=== PATIENT | male | born 1975 | race Two or more races ===

== ENCOUNTER 2020-11-26 15:55 | Outpatient (CLI) | payer MEDICARE ==
[2020-11-26 17:07] LABS: MEAN CORPUSCULAR HEMOGLOBIN 31.3 pg (27.5-34.5); MEAN CORPUSCULAR HGB CONC 34.1 g/dL (33.2-36.2); MEAN PLATELET VOLUME 9.4 fL (7.4-10.4); PLATELET COUNT 243 x10^3/uL (130-400); RED BLOOD COUNT 4.77 x10^6/uL (4.38-5.82); RED CELL DISTRIBUTION WIDTH 14.5 % (9.4-14.8)
== END 2020-11-26 23:59 | disposition home or self-care (01) ==
LOC: RAD 15:55
PROVIDERS: ATTEND Internal Medicine
DX: I82.412 Acute embolism and thrombosis of left femoral vein (principal); R09.02 Hypoxemia
CPT/HCPCS: 36415; 71046; 85027; 85379; 93970

== ENCOUNTER 2020-12-31 09:35 | Observation (INO) | payer MEDICARE ==
[2020-12-31] VITALS (7 sets, daily range): BP systolic 106–148; BP diastolic 73–98
[~2020-12-31] VITALS: Ht 190.5 cm; Wt 94.0 kg
[2020-12-31] MEDS ORDERED: ZOLP-413 PO (10:09)
[2020-12-31] MEDS ORDERED: METO25TA4 PO (10:09)
[2020-12-31] MEDS ORDERED: METO10TA82 PO (10:09)
[2020-12-31] MEDS ORDERED: ASPI-963 PO (10:09)
[2020-12-31] MEDS ORDERED: GABA600T7 PO (10:09)
[2020-12-31] MEDS ORDERED: BUPR-173 PO (10:09)
[2020-12-31] MEDS ORDERED: METH10SO PO (10:09)
[2020-12-31] MEDS ORDERED: ROPI3TAB PO (10:09)
[2020-12-31] MEDS ORDERED: ATOR20TA37 PO (10:09)
[2020-12-31] MEDS ORDERED: ALPR0.254 PO (10:09)
[2020-12-31] MEDS ORDERED: KETOROLAC 30 MG/1 ML ONE ×2 (10:15→12:52)
[2020-12-31 10:25] LABS: BASOPHILS % (AUTO) 0 % (0-1); EOSINOPHILS % (AUTO) 3 % (1-7); LYMPHOCYTES % (AUTO) 6 % (22-44); MEAN CORPUSCULAR HEMOGLOBIN 30.4 pg (27.5-34.5); MEAN CORPUSCULAR HGB CONC 33.3 g/dL (33.2-36.2); MEAN PLATELET VOLUME 9.8 fL (7.4-10.4); MONOCYTES % (AUTO) 4 % (2-9); NEUTROPHILS % (AUTO) 87 % (42-75); PLATELET COUNT 258 x10^3/uL (130-400); RED CELL DISTRIBUTION WIDTH 14.2 % (9.4-14.8)
--- NOTE | 2020-12-31 10:29 | NUR ---
Pt presents to the ER via EMS from home. Sudden onset CP that feels the same as previous UT. Pt has stent from previous UT that was discovered to be occluded in September. Pt was diagonsed with bronchitis in September and tested negative for COVID at this time. Both mother and father have cardiac hx. Pt presents to the ER diaphoretic and without relief from pain. EKG done upon arrival. Pt connected to all monitors. Call light in reach. MD Vallejo to bedside for eval.
[2020-12-31] MEDS ORDERED: KETOROLAC 30 MG/1 ML IVPush ONE (10:30)
[2020-12-31] MEDS ORDERED: SODIUM CHLORIDE FLUSH 10ML SYR IVF ONE (10:30)
[2020-12-31 10:37] LABS: ALANINE AMINOTRANSFERASE 23 U/L (12-78); ALBUMIN 3.7 g/dL (3.4-5.0); ANION GAP 4 mmol/L (5-15); CALCIUM 9.2 mg/dL (8.5-10.1); CHLORIDE 106 mmol/L (98-107); CREATININE 1.06 mg/dL (0.7-1.3)
[2020-12-31 10:41] LABS: ALKALINE PHOSPHATASE 107 U/L (45-117); BILIRUBIN,TOTAL 0.8 mg/dL (0.2-1.0); TOTAL PROTEIN 7.6 g/dL (6.4-8.2); TROPONIN I < 0.015 ng/mL (0.000-0.045)
--- NOTE | 2020-12-31 10:49 | NUR ---
Pt no longer diaphoretic.
--- NOTE | 2020-12-31 11:36 | NUR ---
Pt a telemetry hold at 1130. Pt sleeping. VSS. Awaiting admitting hospitalist orders.
[2020-12-31] MEDS ORDERED: ONDANSETRON 2MG/ML, 2ML ONE (11:55)
[2020-12-31] MEDS ORDERED: ENOXAPARIN 40 MG/0.4 ML ONE (11:55)
[2020-12-31] MEDS: ASPIRIN 81 MG TABLET EC PO SCH (11:58)
[2020-12-31] MEDS: SODIUM CHLORIDE 0.9% 1,000 ML IV SCH (11:58)
[2020-12-31] MEDS: ENOXAPARIN 40 MG/0.4 ML SQ SCH (11:59)
[2020-12-31] MEDS ORDERED: ACETAMINOPHEN 325 MG TABLET PO PRN (12:00)
[2020-12-31] MEDS ORDERED: ZOLPIDEM 5MG TABLET PO PRN (12:00)
[2020-12-31] MEDS: ONDANSETRON 2MG/ML, 2ML IVPush PRN ×2 (12:03→20:37)
--- NOTE | 2020-12-31 12:06 | NUR ---
ASSIST RN: PT C/O NAUSEA, MEDICATED WITH ZOFRAN PER PRN ORDERS. MIVF INFUSING. TO CT VIA GIANNI JOLLY.
[2020-12-31] MEDS ORDERED: OMNIPAQUE 350 MG/ML, 75ML BOTTLE ONE (12:29)
[2020-12-31 12:33] LABS: TROPONIN I < 0.015 ng/mL (0.000-0.045)
--- NOTE | 2020-12-31 12:33 | NUR ---
, earnest Banda to update. .
[2020-12-31] MEDS: KETOROLAC 30 MG/1 ML IV PRN (13:04)
--- NOTE | 2020-12-31 13:31 | NUR ---
First attempt to call report.
[2020-12-31] MEDS ORDERED: NITROGLYCERIN 0.4 MG/SPRAY SL PRN (14:30)
[2020-12-31] MEDS: NITROGLYCERIN 0.4 MG BOTTLE (25 TABS) SL PRN ×3 (14:41→14:54)
[2020-12-31] MEDS: MORPHINE SULFATE 4 MG/ML, 1ML IVPush PRN ×2 (15:26→20:38)
[2020-12-31] MEDS: CEFTRIAXONE 2 GM in DEXTROSE 5% 50 ML IVPB SCH (15:29)
[2020-12-31] MEDS: METHADONE 10 MG TABLET PO SCH ×2 (17:11→21:19)
[2020-12-31] MEDS: METOCLOPRAMIDE 5 MG/ML, 2ML IVPush PRN (17:11)
[2020-12-31] MEDS: DOXYCYCLINE 100 MG in DEXTROSE 5% 250 ML IV SCH (17:11)
[2020-12-31 17:46] LABS: TROPONIN I < 0.015 ng/mL (0.000-0.045)
[2020-12-31] MEDS: METOPROLOL TARTRATE 25 MG TAB PO SCH (18:29)
[2020-12-31 19:28] LABS: TROPONIN I < 0.015 ng/mL (0.000-0.045)
[2020-12-31] MEDS ORDERED: GABAPENTIN 300 MG CAPSULE PO SCH (21:00)
[2020-12-31] MEDS ORDERED: ATORVASTATIN 40 MG TABLET PO SCH (21:00)
[2020-12-31] MEDS: BUPROPION SR 100 MG TABLET PO SCH (21:19)
[2020-12-31 22:44] LABS: AMPHETAMINE SCREEN, URINE Negative (Negative); BARBITURATE SCREEN, URINE Negative (Negative); BENZODIAZEPINE SCREEN, URINE Positive (Negative); CANNABINOID SCREEN, URINE Positive (Negative); COCAINE SCREEN, URINE Negative (Negative); METHADONE SCREEN, URINE Positive (Negative); OPIATE SCREEN, URINE Positive (Negative)
[2021-01-01 00:17] VITALS: BP 112/76
[2021-01-01] MEDS: METOCLOPRAMIDE 5 MG/ML, 2ML IVPush PRN ×3 (00:59→14:36)
[2021-01-01] MEDS: MORPHINE SULFATE 4 MG/ML, 1ML IVPush PRN ×2 (00:59→05:09)
[2021-01-01 05:00] VITALS: BP 106/73
[2021-01-01] MEDS: ONDANSETRON 2MG/ML, 2ML IVPush PRN (05:09)
[2021-01-01] MEDS: DOXYCYCLINE 100 MG in DEXTROSE 5% 250 ML IV SCH ×2 (05:09→16:34)
[2021-01-01] MEDS: METOPROLOL TARTRATE 25 MG TAB PO SCH ×2 (05:10→08:34)
[2021-01-01] MEDS: METHADONE 10 MG TABLET PO SCH ×3 (05:10→16:34)
[2021-01-01 06:03] LABS: BASOPHILS % (AUTO) 1 % (0-1); EOSINOPHILS % (AUTO) 5 % (1-7); LYMPHOCYTES % (AUTO) 19 % (22-44); MEAN CORPUSCULAR HEMOGLOBIN 30.9 pg (27.5-34.5); MEAN CORPUSCULAR HGB CONC 33.6 g/dL (33.2-36.2); MEAN PLATELET VOLUME 9.7 fL (7.4-10.4); MONOCYTES % (AUTO) 8 % (2-9); NEUTROPHILS % (AUTO) 68 % (42-75); PLATELET COUNT 212 x10^3/uL (130-400); RED BLOOD COUNT 4.79 x10^6/uL (4.38-5.82); RED CELL DISTRIBUTION WIDTH 13.9 % (9.4-14.8)
[2021-01-01 06:09] LABS: ALBUMIN 3.1 g/dL (3.4-5.0); ANION GAP 3 mmol/L (5-15); CALCIUM 8.4 mg/dL (8.5-10.1); CHLORIDE 110 mmol/L (98-107)
[2021-01-01 06:15] LABS: ALANINE AMINOTRANSFERASE 34 U/L (12-78); ALKALINE PHOSPHATASE 122 U/L (45-117); BILIRUBIN,TOTAL 0.8 mg/dL (0.2-1.0); CHOL/HDL RATIO 5.6; CHOLESTEROL, TOTAL 150 mg/dL (140-239); CREATININE 0.92 mg/dL (0.7-1.3); HDL CHOL % 18 % (26-37); HDL CHOLESTEROL (DIRECT) 27 mg/dL (40-60); LDL CHOLESTEROL,CALCULATED 96 mg/dL (54-169); LDL/HDL RATIO 3.6 (0.5-3.0); TOTAL PROTEIN 6.2 g/dL (6.4-8.2); TRIGLYCERIDES 136 mg/dL (50-200); VLDL CHOLESTEROL 27 mg/dL (0-25)
[2021-01-01 08:27] VITALS: BP 131/87
[2021-01-01] MEDS: ASPIRIN 81 MG TABLET EC PO SCH (08:32)
[2021-01-01] MEDS: BUPROPION SR 100 MG TABLET PO SCH (08:33)
[2021-01-01] MEDS: KETOROLAC 30 MG/1 ML IV PRN ×2 (08:51→15:12)
[2021-01-01] MEDS ORDERED: ROPINIROLE 1MG TABLET PO SCH (09:00)
[2021-01-01] MEDS ORDERED: GABAPENTIN 300 MG CAPSULE PO SCH (09:00)
[2021-01-01] MEDS: SODIUM CHLORIDE 0.9% 1,000 ML IV SCH ×2 (09:12)
[2021-01-01 11:15] VITALS: BP 130/81
[2021-01-01] MEDS: ENOXAPARIN 40 MG/0.4 ML SQ SCH (11:46)
[2021-01-01 14:03] VITALS: BP 154/108
[2021-01-01] MEDS ORDERED: CEFD300C37 PO (15:34)
[2021-01-01] MEDS ORDERED: DOXY100T PO (15:34)
[2021-01-01] MEDS: CEFTRIAXONE 2 GM in DEXTROSE 5% 50 ML IVPB SCH (15:52)
[2021-01-01] MEDS ORDERED: ATORVASTATIN 80 MG TABLET PO SCH (21:00)
[2021-01-01] MEDS ORDERED: METOPROLOL SUCCINATE 25 MG TAB.ER.24H PO SCH (21:00)
== END 2021-01-01 18:47 | disposition home or self-care (01) ==
LOC: ED 11:09 → INTOOBSV 11:18 → EDIP 11:18 → 5SO 14:02 → UNDODISIN 01-01 18:47
PROVIDERS: ADMIT Hospitalist; ATTEND Hospitalist
DX: R07.89 Other chest pain (principal); R61 Generalized hyperhidrosis; J96.10 Chronic respiratory failure, unspecified whether with hypoxia or hypercapnia; I25.10 Atherosclerotic heart disease of native coronary artery without angina pectoris; G89.29 Other chronic pain; E66.9 Obesity, unspecified; R73.9 Hyperglycemia, unspecified; I25.2 Old myocardial infarction; F41.9 Anxiety disorder, unspecified; I10 Essential (primary) hypertension; E78.5 Hyperlipidemia, unspecified; I71.4 Abdominal aortic aneurysm, without rupture; I82.502 Chronic embolism and thrombosis of unspecified deep veins of left lower extremity; Z95.810 Presence of automatic (implantable) cardiac defibrillator; Z79.82 Long term (current) use of aspirin; Z79.899 Other long term (current) drug therapy
CPT/HCPCS: 36415; 71045; 71275; 80053; 80061; 80307; 82962; 83880; 84145; 84443; 84484; 85025; 85379; 87040; 93005; 93971; 96361; 96365; 96366; 96367; 96372; 96375; 96376; 99285; C8929; G0378; J0696; J1650; J1885; J2270; J2405; J2765; J7030; J7060; Q9957; Q9967; 96374

== ENCOUNTER → 2021-01-24 | Outpatient (CLI) | payer MEDICARE ==
[~2021-01-24] MED LIST: ALPR0.254 PO; ASPI-963 PO; ATOR20TA37 PO; BUPR-173 PO; CEFD300C37 PO; DOXY100T PO; GABA600T7 PO; METH10SO PO; METO10TA82 PO; METO25TA4 PO; ROPI3TAB PO; ZOLP-413 PO
== END | disposition home or self-care (01) ==
LOC: RAD 12:29
PROVIDERS: ATTEND Internal Medicine Cardiovascular Disease
DX: I35.8 Other nonrheumatic aortic valve disorders (principal); I25.10 Atherosclerotic heart disease of native coronary artery without angina pectoris; Z87.891 Personal history of nicotine dependence
CPT/HCPCS: 93306; 93356; 93978

== ENCOUNTER 2021-03-27 15:03 | Observation (INO) | payer MEDICARE ==
[~2021-03-27] VITALS: Ht 190.5 cm; Wt 102.5 kg
[2021-03-27] MEDS ORDERED: ONDANSETRON 2MG/ML, 2ML IVPush ONE (15:30)
[2021-03-27] MEDS ORDERED: SODIUM CHLORIDE FLUSH 10ML SYR IVF ONE (15:30)
[2021-03-27] MEDS ORDERED: MORPHINE SULFATE 4 MG/ML, 1ML ONE ×3 (15:35→19:58)
[2021-03-27] MEDS ORDERED: ONDANSETRON 2MG/ML, 2ML ONE ×3 (15:35→21:46)
[2021-03-27] MEDS: MORPHINE SULFATE 4 MG/ML, 1ML IVPush PRN ×2 (15:42→17:23)
[2021-03-27 16:45] LABS: CHLORIDE 110 mmol/L (98-107)
[2021-03-27 16:54] LABS: ALANINE AMINOTRANSFERASE 21 U/L (12-78); ALBUMIN 3.7 g/dL (3.4-5.0); ALKALINE PHOSPHATASE 130 U/L (45-117); ANION GAP 2 mmol/L (5-15); BILIRUBIN,TOTAL 0.8 mg/dL (0.2-1.0); CALCIUM 9.2 mg/dL (8.5-10.1); CREATININE 1.07 mg/dL (0.7-1.3); TOTAL PROTEIN 7.3 g/dL (6.4-8.2); TROPONIN I < 0.015 ng/mL (0.000-0.045)
--- NOTE | 2021-03-27 17:00 | NUR ---
pt reports cp down to 12/23 from 02/22
[2021-03-27 17:12] LABS: MEAN CORPUSCULAR HEMOGLOBIN 30.4 pg (27.5-34.5); MEAN CORPUSCULAR HGB CONC 33.4 g/dL (33.2-36.2); MEAN PLATELET VOLUME 10.1 fL (7.4-10.4); PLATELET COUNT 235 x10^3/uL (130-400); RED BLOOD COUNT 5.35 x10^6/uL (4.38-5.82); RED CELL DISTRIBUTION WIDTH 14.8 % (9.4-14.8)
--- NOTE | 2021-03-27 17:20 | NUR ---
pt states cp increasing to 02/22 again. now at bedside
[2021-03-27 17:57] LABS: BAND#(MANUAL) 0.28 x10^3/uL; BANDS%(MANUAL) 2 % (0-7); LYMPH#(MANUAL) 1.28 x10^3/uL (1-3.4); LYMPHS% (MANUAL) 9 % (22-44); MONOS#(MANUAL) 0.28 x10^3/uL (0.3-2.7); MONOS% (MANUAL) 2 % (2-9); SEG#(MANUAL) 12.35 x10^3/uL (1.8-6.8); SEGS% (MANUAL) 87 % (42-75)
[2021-03-27 17:58] LABS: <PLATELET ESTIMATE> ADEQUATE; <PLT MORPHOLOGY> NORMAL PLT MORPH; <RBC MORPHOLOGY> NORMAL
--- NOTE | 2021-03-27 18:18 | NUR ---
pt states pain is back to 5/10 but he is feeling more nausous. Dr Arreola gave verbal orders for 4 mg ivp zofran.
--- NOTE | 2021-03-27 19:07 | NUR ---
REPORT GIVEN TO CARMELINA PAINTING.
[2021-03-27] MEDS ORDERED: NITROGLYCERIN 0.4 MG BOTTLE (25 TABS) SL PRN (20:00)
[2021-03-27] MEDS ORDERED: NITROGLYCERIN 0.4 MG/SPRAY SL PRN (20:00)
[2021-03-27] MEDS ORDERED: ACETAMINOPHEN 325 MG TABLET PO PRN (20:00)
[2021-03-27] MEDS ORDERED: ENOXAPARIN 40 MG/0.4 ML SQ SCH (20:00)
[2021-03-27] MEDS: morphine SULFATE 10 MG/ML, 1ML IV PRN (20:09)
--- NOTE | 2021-03-27 20:10 | NUR ---
PT REPORTS INCREASED CHEST PAIN. REQUESTING MORE PAIN MEDS. PT MEDICATED FOR PAIN PER EMAR. VSS.
[2021-03-27 20:36] LABS: TROPONIN I < 0.015 ng/mL (0.000-0.045)
[2021-03-27] MEDS ORDERED: KETOROLAC 30 MG/1 ML IVPush ONE (21:02)
[2021-03-27] MEDS: ONDANSETRON 2MG/ML, 2ML IV PRN (21:47)
--- NOTE | 2021-03-27 21:54 | NUR ---
pt requesting meds for nausea. pt medicated for nausea per emar
--- NOTE | 2021-03-27 22:06 | NUR ---
report to jason douglass
--- NOTE | 2021-03-27 22:15 | NUR ---
pt in [place] at this time
[2021-03-27] MEDS ORDERED: OMNIPAQUE 350 MG/ML, 100ML BOTTLE ONE (22:30)
[2021-03-27 22:57] VITALS: BP 132/90
[2021-03-27] MEDS: SODIUM CHLORIDE FLUSH 10ML SYR IVF SCH (23:23)
[2021-03-28] MEDS: morphine SULFATE 10 MG/ML, 1ML IV PRN ×3 (00:46→12:55)
[2021-03-28 01:55] VITALS: BP 106/70
[2021-03-28 02:23] LABS: TROPONIN I < 0.015 ng/mL (0.000-0.045)
[2021-03-28] MEDS ORDERED: ASPIRIN 81 MG TABLET EC PO SCH (06:00)
[2021-03-28 06:25] LABS: BASOPHILS % (AUTO) 1 % (0-1); EOSINOPHILS % (AUTO) 3 % (1-7); LYMPHOCYTES % (AUTO) 22 % (22-44); MEAN CORPUSCULAR HEMOGLOBIN 30.2 pg (27.5-34.5); MEAN CORPUSCULAR HGB CONC 33.1 g/dL (33.2-36.2); MEAN PLATELET VOLUME 9.4 fL (7.4-10.4); MONOCYTES % (AUTO) 9 % (2-9); NEUTROPHILS % (AUTO) 65 % (42-75); PLATELET COUNT 208 x10^3/uL (130-400); RED BLOOD COUNT 5.07 x10^6/uL (4.38-5.82); RED CELL DISTRIBUTION WIDTH 14.7 % (9.4-14.8)
[2021-03-28 06:29] LABS: ANION GAP 4 mmol/L (5-15); CALCIUM 8.9 mg/dL (8.5-10.1); CHLORIDE 106 mmol/L (98-107)
[2021-03-28 06:32] LABS: CHOL/HDL RATIO 5.1; CHOLESTEROL, TOTAL 149 mg/dL (140-239); CREATININE 1.02 mg/dL (0.7-1.3); HDL CHOL % 19 % (26-37); HDL CHOLESTEROL (DIRECT) 29 mg/dL (40-60); LDL CHOLESTEROL,CALCULATED 80 mg/dL (54-169); LDL/HDL RATIO 2.8 (0.5-3.0); TRIGLYCERIDES 200 mg/dL (50-200); VLDL CHOLESTEROL 40 mg/dL (0-25)
[2021-03-28 07:39] VITALS: BP 108/73
[2021-03-28] MEDS: SODIUM CHLORIDE FLUSH 10ML SYR IVF SCH (09:00)
[2021-03-28] MEDS ORDERED: METHADONE HCL PO SCH (12:30)
[2021-03-28] MEDS ORDERED: ALBUTEROL SULFATE 2.5 MG/3 ML NPPB PRN (13:00)
[2021-03-28 15:00] VITALS: BP 122/85
[2021-03-28] MEDS: ONDANSETRON 2MG/ML, 2ML IV PRN (15:32)
[2021-03-28] MEDS ORDERED: METHADONE 10 MG TABLET PO SCH (16:00)
[2021-03-28] MEDS ORDERED: METOCLOPRAMIDE 10MG TABLET PO SCH (16:00)
[2021-03-28] MEDS ORDERED: BUDE10.22 PO (16:54)
[2021-03-28] MEDS ORDERED: ALBU18HF INH (16:57)
[2021-03-28] MEDS ORDERED: METH4TAB PO ×2 (16:59→17:03)
[2021-03-28] MEDS ORDERED: GUAI12009 PO (17:03)
[2021-03-28 18:26] VITALS: BP 133/93
[2021-03-28] MEDS ORDERED: ZOLPIDEM 5MG TABLET PO SCH (21:00)
[2021-03-28] MEDS ORDERED: BUPROPION SR 100 MG TABLET PO SCH (21:00)
[2021-03-28] MEDS ORDERED: GUAIFENESIN ER 600 MG TABLET PO SCH (21:00)
[2021-03-28] MEDS ORDERED: GABAPENTIN 300 MG CAPSULE PO SCH (21:00)
[2021-03-28] MEDS ORDERED: ATORVASTATIN 20 MG TABLET PO SCH (21:00)
[2021-03-29] MEDS ORDERED: ROPINIROLE 1MG TABLET PO SCH (09:00)
[2021-03-29] MEDS ORDERED: METOPROLOL TARTRATE 25 MG TAB PO SCH (09:00)
== END 2021-03-28 18:55 | disposition home or self-care (01) ==
LOC: ED 18:44 → EDIP 18:45 → INTOOBSV 18:45 → 5SO 22:52
PROVIDERS: ADMIT Emergency Medicine; ATTEND Internal Medicine
DX: R07.89 Other chest pain (principal); J45.901 Unspecified asthma with (acute) exacerbation; G89.29 Other chronic pain; E66.9 Obesity, unspecified; E78.5 Hyperlipidemia, unspecified; I25.10 Atherosclerotic heart disease of native coronary artery without angina pectoris; I10 Essential (primary) hypertension; I82.502 Chronic embolism and thrombosis of unspecified deep veins of left lower extremity; D72.829 Elevated white blood cell count, unspecified; F11.20 Opioid dependence, uncomplicated; I25.2 Old myocardial infarction; R91.8 Other nonspecific abnormal finding of lung field; F39 Unspecified mood [affective] disorder; F41.9 Anxiety disorder, unspecified; I25.82 Chronic total occlusion of coronary artery; Z86.711 Personal history of pulmonary embolism; Z68.29 Body mass index [BMI] 29.0-29.9, adult; Z79.82 Long term (current) use of aspirin; Z79.899 Other long term (current) drug therapy; Z87.891 Personal history of nicotine dependence; Z95.5 Presence of coronary angioplasty implant and graft
CPT/HCPCS: 36415; 71045; 71275; 80048; 80053; 80061; 83690; 84484; 85025; 85379; 93005; 96372; 96374; 96375; 96376; 99285; G0378; J1650; J1885; J2270; J2405; Q0181; Q9967